=== PATIENT | male | born 1965 | race Caucasian/White ===

== ENCOUNTER 2023-11-06 17:15 | Emergency (ER) | payer MEDICAID, SELFPAY ==
--- NOTE | 2023-11-06 17:15 | RT.EKG_ITS ---
APPROVED REPORT Exam: Resting ECG Reason for Exam: chest pain Patient Location: E HR:70 bpm ECG Measurements Heart Rate 70 AXIS LA 192 P 56 QRSd 95 QRS 10 QT 415 T 29 QTc 450 Conclusion Sinus rhythm...normal P axis, V-rate 60- 99 Physician: intervals stable, no stemi
[2023-11-06 17:18] VITALS: BP 234/87; PULSE 103; PULSE 236; RESP 40
[2023-11-06 17:20] VITALS: BP 234/87; PULSE 147; RESP 26; O2SAT 95
[2023-11-06] MEDS: Naloxone 0.4 MG/ML VIAL IVP (17:30)
--- NOTE | 2023-11-06 17:30 | DI.RAD_ITS ---
Exam(s) XR PORTABLE CHEST AP EXAM: XR PORTABLE CHEST AP CLINICAL HISTORY: sob, resp arrest TECHNIQUE: 2D digital imaging was performed of the chest. One image was obtained. An AP view was ob tained. COMPARISON: No exams were available for comparison FINDINGS: Portions of the lungs are obscured by overlying monitoring equipment. MEDIASTINUM: Normal. HEART: Normal. PULMONARY VASCULATURE: Normal. LUNGS: Clear. PLEURAL SPACE: No pleural effusion or pneumothorax. BONE:Within normal limits for the patient's age. OTHER FINDINGS:Normal. IMPRESSION: No acute pulmonary findings. DATA REPOSITORY: RADIATION DOSE DELIVERED:
[2023-11-06 17:33] VITALS: BP 125/72; PULSE 111; PULSE 113; RESP 23
[2023-11-06] MEDS: Lactated Ringers 1,000 ML 1000 ML IV ×2 (17:35→17:36)
[2023-11-06 17:40] LABS: BE (Venous) -17 mmol/L (-2-3); HCO3 (Venous) 12 mmol/L (23-28); O2 Sat (Venous) 98 %; TCO2 (Venous) 12 mmol/L (24-29); pCO2 (Venous) 35 mmHg (41-51); pO2 (Venous) 135 mmHg
[2023-11-06 17:42] LABS: Abs Immature Grans 0.12 10^3/uL (0.0-0.06); Absolute Basophil Count 0.07 10^3/uL (0.0-0.2); Absolute Eosinophil Count 0.32 10^3/uL (0.0-0.7); Absolute Lymphocyte Count 3.54 10^3/uL (1.2-3.4); Absolute Monocyte Count 0.58 10^3/uL (0.1-0.8); Absolute Neutrophil Count 4.89 10^3/uL (1.2-6.7); Basophils % 0.7 %; Eosinophils % 3.4 %; HCT 42.3 % (40.0-50.0); HGB 13.7 g/dL (13.5-17.5); Immature Grans % 1.3 %; Lymphocytes % 37.2 %; MCH 31.3 pg (27.0-33.0); MCHC 32.4 % (32.0-36.0); MCV 97 fL (80-95); Monocytes % 6.1 %; Neutrophils % 51.3 %; Platelet Count 205 10^3/uL (130-400); RBC 4.38 10^6/uL (4.36-5.78); RDW 14.1 % (11.8-14.1); RDW-SD 50.1 fL; WBC 9.52 10^3/uL (4.4-10.8)
[2023-11-06 17:43] LABS: Lactate 14.4 mmol/L (0.6-1.4); pH (Venous) 7.15 (7.31-7.41)
[2023-11-06 17:46] VITALS: BP 112/75; PULSE 84; PULSE 85; RESP 26
[2023-11-06 17:48] VITALS: RESP 16
--- NOTE | 2023-11-06 17:57 | NUR.NOTE ---
Nursing Note: on arrival staff alerted by frontload driver of car patient unresponsive in back of van. On inspection patient appeard to have a blueish tone to skin, breathing 10 ==
--- NOTE | 2023-11-06 17:59 | NUR.NOTE ---
Nursing Note: staff alerted by entry level truck driver of vehicle that PT was unresponsive in back of melvin. Upon inspection by this RN patient appeared blue, unresponsive and breathing 8 breath/min. Women with patient told this RN he did Heroin today. x2 narcan given as ordered. This RN and 3 other nursing staff pulled patient out of the back of Van on to stretcher and transported via stretcher to unit. Nasal trumpet airway established respiratory/breathing support by RT via ambu bag, PT's heart rate in 190s SVT, another narcan given as ordered. Patient sat up on own, confused but able to respond to questions. At this time, patient sitting up on stretcher drinking water. HR WNL see chart for VS.
[2023-11-06 18:01] LABS: Salicylate 5.2 mg/dL (<2.8)
[2023-11-06 18:02] LABS: Acetaminophen < 2 ug/mL (10-30)
[2023-11-06 18:06] LABS: ALT 36 U/L (16-63); AST 32 U/L (15-37); Albumin 3.7 g/dL (3.4-5.0); Alkaline Phosphatase 73 U/L (46-116); BUN 9 mg/dL (7-18); Bilirubin, Total 0.47 mg/dL (0.2-1.0); CREATININE 1.6 mg/dL (0.70-1.30); Calcium 8.6 mg/dL (8.5-10.1); Chloride 100 mmol/L (98-107); Estimated GFR 50.26 (mL/min/1.73m2); Glucose 364 mg/dL (74-106); Lipase 78 U/L (16-77); Potassium 3.5 mmol/L (3.5-5.1); Sodium 138 mmol/L (136-145); TSH (W/Ref FT4) 5.77 uIU/mL (0.36-3.74); Troponin I < 50 ng/L (< or =60)
[2023-11-06 18:18] LABS: ETHANOL BLOOD < 3.0 mg/dL (<10)
[2023-11-06 18:24] LABS: Creatine Kinase 111 U/L (39-308)
[2023-11-06 18:25] LABS: FREE T4 0.67 ng/dL (0.76-1.46)
[2023-11-06 19:35] LABS: Bilirubin Negative (Negative); Blood Negative (Negative); Clarity Clear (Clear); Glucose >=1000 mg/dL (Negative); Ketones Trace mg/dL (Negative); Leukocyte Esterase Negative (Negative); Nitrite Negative (Negative); Specific Gravity 1.025 (1.005-1.025); Urobilinogen 0.2 mg/dL (Up to 0.2)
[2023-11-06 19:38] LABS: BE (Venous) -1 mmol/L (-2-3); HCO3 (Venous) 26 mmol/L (23-28); O2 Sat (Venous) 81 %; TCO2 (Venous) 23 mmol/L (24-29); pCO2 (Venous) 50 mmHg (41-51); pH (Venous) 7.32 (7.31-7.41); pO2 (Venous) 48 mmHg
[2023-11-06 19:42] LABS: Lactate 2.1 mmol/L (0.6-1.4)
[2023-11-06 19:46] LABS: Bacteria Rare HPF (Negative); C & S Indicated? No; Casts 3-5 Hyaline LPF (Negative); Crystals Negative HPF (Negative); Epithelial Cells Rare HPF (Negative); Mucus Negative (Negative); Other Cells Rare Transitional (Negative); RBC 0-2 HPF (0-2); WBC 0-2 HPF (0-5)
--- NOTE | 2023-11-06 19:50 | ED.GENADUL_ITS ---
Discharge Plan Disposition Patient Disposition: Home Condition: Good Discharge Details Clinical Impression: Respiratory arrest, Overdose, Dehydration, Acidosis, lactic Primary Care Provider: Unknown,Unknown ED Provider: Monty Castro Home Meds and New Rx's Prescriptions: No Action No Known Home Meds Discharge Instructions Instructions: Accidental Overdose Additional Instructions: Please avoid narcotic medications or drugs as this can cause life-threatening problems. You would have had permanent brain damage, heart damage or respiratory damage if your symptoms continued for much longer. If you notice any worsening of your symptoms, or any new symptoms such as vomiting, diarrhea, fever, chills, shortness of breath, chest pain, numbness, weakness, or fainting , please return immediately to the emergency department for reevaluation. Please follow up with your primary care provider as soon as possible for reassessment and reevaluation. As always, it was a pleasure participating in your medical care today. Discharge Data Discharge Date/Time-TO BE ENTERED AT DEPARTURE: 11/06/23 20:07 HPI General Date/Time Provider Initiated Documentation: 11/06/23 17:22 . HPI Narrative: This is a 58-year-old male who normally resides in [place] and is a new patient here who presents today for respiratory arrest. History from the individuals who brought the patient in report that patient took some stuff and then he stopped breathing. Later history revealed from the patient that he had been having some chronic pain, he asked for some pain medication from the people he was staying with. They offered him a very tiny line of fentanyl. He states that he is normally not taking fentanyl on a regular basis, he took the line, and then reportedly stopped breathing. He was then brought to the ER by his compatriots. Upon arrival the patient is demonstrating a GCS of 3 and apneic. He does not report any additional historical factors. Later he reports that he denies any past medical history except for alcohol use. No other complaints at this time. Related Data Home Medications Medication Instructions Recorded Confirmed Unknown [No Known Home Meds] 11/06/23 11/06/23 General Stated Complaint: OD/Poison [place]: 1 Review of Systems All systems reviewed & are unremarkable except as noted in HPI and below Exam Narrative Exam Narrative: GEN: unresponsive, in extremis SKIN: Blue, pale, cool NECK: no signs of trauma HENT: normocephalic atraumatic CV: Tachycardic, no murmur RESP: no spontaneous respirations ABD: soft MSK: no spontaneous movements, no obvious deformity BACK: no obvious trauma NEURO: unresponsive, pinpoint pupils, no spontaneous movements. PSYCH: unresponsive Course Vital Signs Vital signs: Vital Signs Pulse 103 H 11/06/23 17:18 Respiratory Rate 40 H 11/06/23 17:18 Blood Pressure 234/87 H 11/06/23 17:18 Pulse 84 11/06/23 17:46 Pulse 85 11/06/23 17:46 Respiratory Rate 16 11/06/23 17:48 Respiratory Effort Normal 11/06/23 17:48 Respiratory Depth Normal 11/06/23 17:48 Respiratory Pattern Normal 11/06/23 17:48 Blood Pressure 112/75 11/06/23 17:46 Blood Pressure Mean 85 11/06/23 17:46 Pulse Oximetry 95 11/06/23 17:20 Oxygen Delivery Method Room Air 11/06/23 17:20 Oxygen Flow Rate 0 11/06/23 17:20 Lab/Test Results Lab/Test Results: Laboratory Tests Range/Units 11/06/23 11/06/23 11/06/23 17:30 19:19 19:35 WBC (4.4-10.8) 10^3/uL 9.52 RBC (4.36-5.78) 10^6/uL 4.38 Hgb (13.5-17.5) g/dL 13.7 Hct (40.0-50.0) % 42.3 MCV (80-95) fL 97 H MCH (27.0-33.0) pg 31.3 MCHC (32.0-36.0) % 32.4 RDW (11.8-14.1) % 14.1 Plt Count (130-400) 10^3/uL 205 MPV (8.0-11.0) fL 11.0 Immature Gran % % 1.3 Neutrophils % % 51.3 Lymphocytes % % 37.2 Monocytes % % 6.1 Eosinophils % % 3.4 Basophils % % 0.7 Nucleated RBC % (0.0-0.3) % 0.0 Absolute Neutrophils (1.2-6.7) 10^3/uL 4.89 Absolute Lymphocytes (1.2-3.4) 10^3/uL 3.54 H Absolute Monocytes (0.1-0.8) 10^3/uL 0.58 Absolute Eosinophils (0.0-0.7) 10^3/uL 0.32 Absolute Basophils (0.0-0.2) 10^3/uL 0.07 VBG pH (7.31-7.41) 7.15 L* 7.32 VBG pCO2 (41-51) mmHg 35 L 50 VBG pO2 mmHg 135 48 VBG HCO3 (23-28) mmol/L 12 L 26 VBG Total CO2 (24-29) mmol/L 12 L 23 L VBG O2 Saturation % 98 81 VBG Base Excess (-2-3) mmol/L -17 L -1 VBG Lactate (0.6-1.4) mmol/L 14.4 H* 2.1 H Sodium (136-145) mmol/L 138 Potassium (3.5-5.1) mmol/L 3.5 Chloride (98-107) mmol/L 100 Carbon Dioxide (21.0-32.0) mmol/L 15.0 L Anion Gap (3-11) mmol/L 23.0 H BUN (7-18) mg/dL 9 Creatinine (0.70-1.30) mg/dL 1.6 H Est GFR (CKD-EPI 2020) (mL/min/1.73m2) 50.26 Glucose (74-106) mg/dL 364 H Calcium (8.5-10.1) mg/dL 8.6 Total Bilirubin (0.2-1.0) mg/dL 0.47 AST (15-37) U/L 32 ALT (16-63) U/L 36 Alkaline Phosphatase (46-116) U/L 73 Creatine Kinase (39-308) U/L 111 Troponin I (< or =60) ng/L < 50 Total Protein (6.4-8.2) g/dL 7.0 Albumin (3.4-5.0) g/dL 3.7 Lipase (16-77) U/L 78 H TSH (0.36-3.74) uIU/mL 5.77 H Free T4 (0.76-1.46) ng/dL 0.67 L Urine Color (Yellow) Yellow Urine Clarity (Clear) Clear Urine pH (5-8) 6.0 Ur Specific [place] (1.005-1.025) 1.025 Urine Protein (Neg-Trace) mg/dL 30 H Urine Ketones (Negative) mg/dL Trace H Urine Blood (Negative) Negative Urine Nitrite (Negative) Negative Urine Bilirubin (Negative) Negative Urine Urobilinogen (Up to 0.2) mg/dL 0.2 Ur Leukocyte Esterase (Negative) Negative Urine RBC (0-2) HPF 0-2 Urine WBC (0-5) HPF 0-2 Ur Epithelial Cells (Negative) HPF Rare Urine Crystals (Negative) HPF Negative Urine Bacteria (Negative) HPF Rare Urine Casts (Negative) LPF 3-5 Hyaline Urine Mucus (Negative) Negative Urine Other (Negative) Rare Transitional Ur Culture Indicated? No Urine Glucose (Negative) mg/dL >=1000 H Salicylates (<2.8) mg/dL 5.2 Acetaminophen (10-30) ug/mL < 2 Ethyl Alcohol (<10) mg/dL < 3.0 Medical Decision Making This is a 58-year-old male who normally resides in [place] and is a new patient here who presents today for respiratory arrest. History from the individuals who brought the patient in report that patient took some stuff and then he stopped breathing. Later history revealed from the patient that he had been having some chronic pain, he asked for some pain medication from the people he was staying with. They offered him a very tiny line of fentanyl. He states that he is normally not taking fentanyl on a regular basis, he took the line, and then reportedly stopped breathing. He was then brought to the ER by his compatriots. Upon arrival the patient is demonstrating a GCS of 3 and apneic. He does not report any additional historical factors. Later he reports that he denies any past medical history except for alcohol use. No other complaints at this time. Physical exam on arrival demonstrated patient that was in fulminant respiratory arrest. He was blue, apneic, and notably unresponsive with a GCS of 3. Patient was taken out of the van that he was brought in on, and brought to room 2. Immediately close were cut off, bag valve masking was started, a nasal trumpet was applied, no detectable oxygen status was noted, he was tachycardic in the 140s to 150s, pupils were notably pinpoint. Initial Accu-Chek had not yet been performed, an amp of D50 was started, Clinical history was most concerning for opiate overdose. IVs were established and patient was given 4 mg of intranasal Narcan, and 0.4 mg of IV Narcan. Patient demonstrated a profound response to this and notably awoke, and began asking for water to drink. He denied any chest pain or headache. He denied any history of diabetes. Accu-Chek was not low. Patient had a notable resolution of his symptoms after this. Differential remains highest for opiate overdose which the patient does now admit to. We will rehydrate, evaluate for rhabdomyolysis, cardiac injury, and other acute etiologies. Will evaluate for alcohol component. 20: 30 Patient's initial laboratory workup returned with notably elevated lactate of 14, pH of 7.1, with high concern for notable metabolic acidosis. Troponin normal, anion gap of 23, creatinine of 1.6 with a GFR 50, glucose levels stable. TSH slightly elevated at 5.7 with a free T4.6, UDS hayden negative. Patient was rehydrated with 2 L of lactated Ringer's, as well as multiple cups of oral fluids. He felt much better after this, and demanded to go. He did not want any additional workup. After significant conversation I was able to convince him to allow us to get a repeat lactate and VBG, repeat lactate and VBG demonstrates normal pH now, no acidosis. Repeat lactate is 2.1 demonstrating a profound resolution of his previous severe lactic acidosis. Patient refused any additional treatment or management, stated that he would be leaving immediately and wanted the IV was taken out immediately. We discussed risks and benefits of this. Patient understands that he is taking this decision into his own hands, as well as understanding after a notable discussion with him how close he was to and the potential for this to happen again even without continued observation. Patient understands this. The patient is able to speak clearly. There is no demonstration of any slurring of speech. There is evidence of clear decision making capacity. Patient is able to ambulate well without any difficulty. There are no signs of ataxia or stumbling motions. Repeat exam shows no neurologic deficits to suggest acute intracranial etiology at time of discharge. Patient will be leaving early against our medical advice. However at this time on current clinical assessment patient appears notably clinically stable. We did give a harm reduction packet for the patient. I did offer to connect him with our recovery coaches and he states that he is already established in [place]. I have extensively reviewed the treatment plan and discharge instructions with the patient. I have addressed all patient concerns at this time. The patient was made aware of what symptoms to monitor for that would warrant a return to the emergency department. Discussed the plan with the patient, they demonstrate verbal understanding and agreement with our assessment and plan at this time. The documentation in this chart was dictated using [employer] dictation software. Please excuse any dictation errors. Quality:SDOH Health Related Social Needs: No Data to Display Critical Care Time Critical Care Time Critical Care Time: Yes Total Critical Care Time: 30 Attestation: Upon my evaluation, this patient had a high probability of imminent or life- threatening deterioration, which required my direct attention, intervention, and personal management. I have personally provided 30 minutes of critical care time exclusive of time spent on separately billable procedures. Time includes review of laboratory data, radiology results, discussion with consultants, and monitoring for potential decompensation. Interventions were performed as documented. PFSH All Active Problems (Updated 11/07/23 @ 13:28 by Monty Castro DO) Acidosis, lactic (Acute) Dehydration (Acute) Overdose (Acute) Respiratory arrest (Acute) Social History Smoking/Tobacco Use Status: Current every day Smoking risk assessment performed?: Yes Alcohol Intake: current Alcohol Intake frequency: a few times a month Alcohol type: hard liquor Drug use: Daily Substance use type: marijuana and heroin Details: says he does not drink every day but when he does he binges Housing: homeless Additional Social history: lives in personal juvenal BARNES RN 11/06/23 PAWSS Have you Been Recently Intoxicated or Drunk Within the Last 30 days?: Yes Have you Ever Experienced Previous Episodes of Alcohol Withdrawal?: Yes Have you ever Experienced Withdrawal Seizures?: Yes Have you ever Experienced Delirium Tremens(DT)s?: Yes Have you ever undergone Alcohol Rehabilitation Treatment (i.e, inpt ot outpatient treatment programs)?: Yes Have you ever Experienced Blackouts?: Yes Have you ever Combined Alcohol with other Downers within the last 90 days?: Yes Have you ever Combined Alcohol with any other Substance of Abuse during the last 90 days?: Yes Result: 8
[2023-11-06 19:52] LABS: *AMPHETAMINES SCREEN URINE Negative (Negative); *BARBITURATES SCREEN URINE Negative (Negative); *BENZODIAZEPINES SCREEN URINE Negative (Negative); Cannabinoids THC Negative (Negative); Cocaine Screen,Urine Negative (Negative); METHADONE URINE SCREEN Negative (Negative); OPIATES URINE SCREEN Negative (Negative)
[2023-11-06 19:54] LABS: Tricyclic Antidepressants Negative (Negative)
[2023-11-06 20:06] VITALS: BP 116/76; PULSE 74; RESP 16; O2SAT 98
== END 2023-11-06 20:07 | disposition home or self-care (01) ==
PROVIDERS: Emergency Provider Student in an Organized Health Care Education/Training Program
DX: R09.2 Respiratory arrest (principal); E86.0 Dehydration; T40.1X1A Poisoning by heroin, accidental (unintentional), initial encounter
CPT/HCPCS: 80053; 80307; 82550; 82805; 83690; 93005; 96361; 96374; 99291; 71045; 80320; 80329; 81003; 81015; 83605; 84439; 84443; 84484; 85025; 93010; J2310